=== PATIENT | female | born 2000 | race Caucasian/White ===

== ENCOUNTER 2020-07-15 17:24 | Emergency (ER) | payer OTHER, SELFPAY ==
[~2020-07-15] VITALS: Ht 162.6 cm; Wt 56.1 kg
[~2020-07-15 17:24] MED LIST: ACET500C OR; CEFD250S26 OR; No Historical Meds
[2020-07-15] MEDS ORDERED: PANTOPRAZOLE 40MG VIAL (C9113 PER 1) IV ONE (18:45)
[2020-07-15] MEDS ORDERED: NS 1,000 ML IV ONE (18:45)
[2020-07-15] MEDS ORDERED: SUCRALFATE 1 GM TAB PO ONE (18:45)
[2020-07-15] MEDS ORDERED: GI COCKTAIL 50ML BTL(HYOSCYAMINE/MAALOX/LIDOCAINE VISCOUS)(1:3:1) PO ONE (18:45)
[2020-07-15 19:49] LABS: BASO # 0.1 10^3/uL (0.0-0.2); BASO % 0.9 % (0.0-1.0); EOS % 0.5 % (0.0-3.0); HEMATOCRIT 41.1 % (36.0-47.0); HEMOGLOBIN 13.9 g/dl (12.0-15.5); LYMPH # 2.5 10^3/uL (1.5-5.0); LYMPH % 31.3 % (24.0-44.0); MEAN CORPUSCULAR HEMOGLOBIN 29.9 pg (27.0-33.0); MEAN CORPUSCULAR HGB CONC 33.8 g/dl (32.0-36.5); MEAN CORPUSCULAR VOLUME 88.4 fl (80.0-96.0); MONO # 0.7 10^3/uL (0.0-0.8); MONO % 9.3 % (2.0-8.0); NEUTROPHILS # 4.5 10^3/uL (1.5-8.5); NEUTROPHILS % 57.6 % (36.0-66.0); PLATELET COUNT, AUTOMATED 267 10^3/uL (150-450); RED BLOOD COUNT 4.65 10^6/uL (4.00-5.40); WHITE BLOOD COUNT 7.9 10^3/uL (4.0-10.0)
--- NOTE | 2020-07-15 19:56 | REP ---
INDICATION: left sided abd pain, vomiting. COMPARISON: None. TECHNIQUE: Supine and erect views abdomen, frontal view chest. FINDINGS: There is no free air. There is no evidence of bowel obstruction. No dilated small bowel loops are seen. There is a phlebolith in the left pelvis. The visualized osseous structures are unremarkable. There is no acute infiltrate in either lung. The heart and mediastinum are unremarkable. IMPRESSION: Negative abdominal series. <Electronically signed by Miller Martinez > 07/15/201951
[2020-07-15 20:08] LABS: ALBUMIN 4.2 GM/DL (3.2-5.2); BILIRUBIN,DIRECT 0.2 MG/DL (0.0-0.2); BILIRUBIN,TOTAL 0.5 MG/DL (0.2-1.0); TOTAL PROTEIN 7.4 GM/DL (6.4-8.2)
[2020-07-15 21:17] VITALS: BP 117/76
[2020-07-15] MEDS ORDERED: CARA1TAB6 PO (21:17)
[2020-07-15] MEDS ORDERED: OMEP20TA2 PO (21:17)
== END 2020-07-15 21:56 | disposition home or self-care (01) ==
LOC: M ED 17:24
DX: R10.32 Left lower quadrant pain (principal); R11.2 Nausea with vomiting, unspecified; F17.200 Nicotine dependence, unspecified, uncomplicated; Z79.899 Other long term (current) drug therapy
CPT/HCPCS: 74021; 80047; 80076; 81001; 83690; 85025; 96361; 96374; 99284; C9113